=== PATIENT | female | born 2000 | race African-American/Black ===

== ENCOUNTER 2023-05-01 15:08 | Emergency (ER) | payer BC ==
[2023-05-01 16:54] LABS: #Monocytes 0.2 10x3/uL (0.0-1.1); #Neutrophils 10.2 10x3/uL (1.5-8.4); %Basophils 0.1 % (0.0-2.0); %Eosinophils 0.1 % (0.0-6.0); %Lymphocytes 6.3 % (18.0-47.0); %Monocytes 1.8 % (0.0-10.0); %Neutrophils 90.8 % (40.0-75.0); Hematocrit 25.6 % (34.9-44.5); Hemoglobin 8.6 g/dL (12.0-15.5); Mean Corpuscular HGB CONC 33.6 g/dL (32.0-36.0); Mean Corpuscular Hemoglobin 32.5 pg (27.0-33.0); Mean Corpuscular Volume 96.6 fl (81.6-98.3); Mean Platelet Volume 9.4 fl (7.4-10.4); Platelet Count 204 10x3/uL (150-450); RBC Distribution Width 12.7 % (11.5-14.5); Red Blood Cell (RBC) Count 2.65 10x6/uL (3.90-5.03); White Blood Cell (WBC) Count 11.3 10x3/uL (3.5-10.5)
[2023-05-01 17:00] LABS: ALT (SGPT) 14 U/L (8-55); AST (SGOT) 23 U/L (5-34); Albumin 2.4 g/dL (3.5-5.0); Alkaline Phosphatase 49 U/L (40-110); Anion Gap 13 mmol/L (10-20); BUN (Urea Nitrogen) 28 mg/dL (7.0-18.7); Bilirubin, Total 0.2 mg/dL (0.2-1.2); Calc. Creatinine Clearance 0 mL/min (70-130); Calcium 7.9 mg/dL (7.8-10.44); Carbon Dioxide 17 mmol/L (22-29); Chloride 111 mmol/L (98-107); Estimated GFR 70; Globulin 2.6 g/dL (2.4-3.5); Glucose 99 mg/dL (70-105); Potassium 4.8 mmol/L (3.5-5.1); Sodium 136 mmol/L (136-145)
[2023-05-01 17:21] LABS: BHCG - Serum Negative (NEGATIVE); Pregs Control Background? CLEAR/WHITE (CLR/WHITE); Pregs Control Bar Appear? YES (CONTROL BAR)
[2023-05-01 18:03] LABS: Bilirubin Neg (Negative); Blood, Urine 250 (Negative); Clarity Slightly Cloudy (Clear); Glucose, Urine (Dipstick) Normal (Negative); Ketone, Urine Negative (Negative); Leukocyte 100 (Negative); Nitrite Negative (Negative); Protein, Urine (Dipstick) 500 mg/dl (Neg-Trace); Specific Gravity, Urine 1.015 (1.005-1.030); Urobilinogen Normal mg/dL (Less than 2)
[2023-05-01 18:33] LABS: CAUTI Indications for Culture Pelvic or flank pain; WBC/HPF 21-50 HPF (0-3)
[2023-05-01 18:34] LABS: Bacteria/HPF 2+ HPF (None Seen); Transitional Epithelial 0-3 HPF (None Seen)
[2023-05-01 18:35] LABS: RBC/HPF 21-50 HPF (0-3); Yeast-Budding Rare HPF (None Seen)
[2023-05-01 18:38] LABS: Urine Culture Reflex Yes Yes
== END 2023-05-01 19:18 | disposition home or self-care (01) ==
LOC: CSHERS 15:08
DX: R18.8 Other ascites (principal)
CPT/HCPCS: 74176; 80053; 81001; 84703; 85025; 87086

== ENCOUNTER 2023-05-02 12:47 | Emergency (ER) | payer BC ==
[2023-05-02 15:27] LABS: BHCG - Serum Negative (NEGATIVE); Pregs Control Background? CLEAR/WHITE (CLR/WHITE); Pregs Control Bar Appear? YES (CONTROL BAR)
[2023-05-02 15:32] LABS: Hematocrit 23.6 % (34.9-44.5); Mean Corpuscular HGB CONC 33.9 g/dL (32.0-36.0); Mean Corpuscular Hemoglobin 32.7 pg (27.0-33.0); Mean Corpuscular Volume 96.3 fl (81.6-98.3); Mean Platelet Volume 9.3 fl (7.4-10.4); Platelet Count 205 10x3/uL (150-450); RBC Distribution Width 12.4 % (11.5-14.5); Red Blood Cell (RBC) Count 2.45 10x6/uL (3.90-5.03); White Blood Cell (WBC) Count 9.8 10x3/uL (3.5-10.5)
[2023-05-02 15:34] LABS: ALT (SGPT) 9 U/L (8-55); AST (SGOT) 15 U/L (5-34); Albumin 2.4 g/dL (3.5-5.0); Alkaline Phosphatase 48 U/L (40-110); Anion Gap 11 mmol/L (10-20); BUN (Urea Nitrogen) 32 mg/dL (7.0-18.7); Bilirubin, Total 0.2 mg/dL (0.2-1.2); Calc. Creatinine Clearance 0 mL/min (70-130); Calcium 7.9 mg/dL (7.8-10.44); Carbon Dioxide 18 mmol/L (22-29); Chloride 113 mmol/L (98-107); Estimated GFR 63; Globulin 2.5 g/dL (2.4-3.5); Glucose 100 mg/dL (70-105); Lipase 83 U/L (8-78); Potassium 4.3 mmol/L (3.5-5.1); Protein, Total 4.9 g/dL (6.0-8.3); Sodium 138 mmol/L (136-145)
[2023-05-02 16:19] LABS: Lymphocytes 6 % (21-51); MDiff Complete? YES; Monocytes 4 % (0-10)
[2023-05-02 16:21] LABS: Neutrophil 90 % (42-75); Platelet Adequacy Comment Appears Adequate
== END 2023-05-02 17:39 | disposition home or self-care (01) ==
LOC: CSHERS 12:47
DX: R18.8 Other ascites (principal); M32.9 Systemic lupus erythematosus, unspecified
CPT/HCPCS: 80053; 83690; 83880; 84703; 85025; 99284